=== PATIENT | male | born 1960 | race African-American/Black ===

== ENCOUNTER → 2018-06-24 | Outpatient (CLI) | payer MEDICARE, OTHER ==
--- NOTE | 2018-06-24 15:30 | RAD ---
EXAM: Nuclear gastric emptying scan. HISTORY: Pain. COMPARISON: None. TECHNIQUE: Serial static images were obtained over the stomach following oral administration of 2.0 mCi of 99m-Tc sulfur colloid. FINDINGS: The stomach empties into the small bowel without evidence of reflux in the area of the esophagus. There is 45.5% gastric emptying at 64 minutes, 86.6% gastric emptying at 127 minutes, 93.4% gastric emptying at 188 minutes, and 94.4% gastric emptying at 245 minutes. There is 54.5% retention of radiotracer within the stomach at 60 minutes. For reference purposes, a normal gastric emptying half-time is 66 +/- 22 minutes. IMPRESSION: No evidence of significant delayed gastric emptying. Electronically signed by: So Magana MD (06/24/2018 3:26 PM) [facility]
== END | disposition home or self-care (01) ==
LOC: NM 10:02
PROVIDERS: ATTEND Family Medicine
DX: R10.84 Generalized abdominal pain (principal); E11.9 Type 2 diabetes mellitus without complications
CPT/HCPCS: 78264; A9541

== ENCOUNTER → 2018-08-10 | Outpatient (CLI) | payer MEDICARE, OTHER ==
--- NOTE | 2018-08-10 11:36 | RAD ---
ABDOMEN LTD History: Right upper quadrant abdominal pain Comparison: None. Findings: Multiple sonographic images of the abdomen are submitted. Pancreas is suboptimally seen due to bowel gas, no obvious abnormality in this region. Right lobe of the liver is somewhat enlarged about 18.3 cm longitudinal. No focal hepatic lesion is demonstrated. Hepatic echotexture is within normal limits. Gallbladder is present without intraluminal abnormality, wall thickening, pericholecystic fluid. Right kidney measured 11.7 x 6.2 x 4.4 cm, no hydronephrosis. There is segmental visualization of the inferior vena cava. Common bile duct is within normal limits at 0.3 cm. Visualized abdominal aortic caliber is within normal limits. Impression: 1. There is mild hepatomegaly, no other significant abnormality demonstrated. Pancreas is not well-visualized. Electronically signed by: Christian Caraballo MD (08/10/2018 11:33 AM) [facility]
== END | disposition home or self-care (01) ==
LOC: US 08:12
PROVIDERS: ATTEND Surgery
DX: R16.0 Hepatomegaly, not elsewhere classified (principal)
CPT/HCPCS: 76705

== ENCOUNTER 2018-11-28 19:30 | Emergency (ER) | payer MEDICARE, OTHER ==
[~2018-11-28] VITALS: Ht 175.3 cm; Wt 99.8 kg
[2018-11-28] MEDS ORDERED: IV NORMAL SALINE 1,000ML 1,000 ML IV ONE (19:45)
[2018-11-28] MEDS ORDERED: ONDANSETRON PF 4 MG/2 ML VIAL. IV ONE (19:45)
[2018-11-28] MEDS ORDERED: IOHEXOL 300 MG/ML 75 ML VIAL. IV ONE (20:15)
[2018-11-28 21:02] LABS: BASO % 0 % (0-3); EOS # 0.2 x10^3/uL (0.0-0.7); EOS % 3 % (0-3); HEMATOCRIT 43.8 % (39.0-53.0); HEMOGLOBIN 14.8 g/dL (13.0-17.5); LYMPH # 0.8 x10^3/uL (1.0-4.8); LYMPH % 10 % (24-48); MEAN CORPUSCULAR HEMOGLOBIN 27 pg (25-35); MEAN CORPUSCULAR HGB CONC 34 g/dL (31-37); MEAN CORPUSCULAR VOLUME 80 fL (79-100); MONO # 0.7 x10^3/uL (0.0-1.1); MONO % 9 % (0-9); NEUT # 6.8 x10^3uL (1.8-7.7); NEUT % 79 % (31-73); PLATELET COUNT 163 x10^3/uL (140-400); RED BLOOD COUNT 5.48 x10^6/uL (4.30-5.70); RED CELL DISTRIBUTION WIDTH 13.3 % (11.5-14.5); WHITE BLOOD COUNT 8.6 x10^3/uL (4.0-11.0)
[2018-11-28 21:16] LABS: ALBUMIN 3.1 g/dL (3.4-5.0); ALBUMIN/GLOBULIN RATIO 0.8 (1.0-1.7); CALCIUM 8.7 mg/dL (8.5-10.1); CREATININE 0.9 mg/dL (0.7-1.3); GFR 104.9; POTASSIUM 3.4 mmol/L (3.5-5.1)
--- NOTE | 2018-11-28 21:24 | RAD ---
CT scan of the abdomen and pelvis with contrast 11/28/2018 CLINICAL HISTORY: History of cholecystectomy one month ago with abdominal pain, nausea, vomiting and fevers. TECHNIQUE: After the intravenous administration 75 cc of Omnipaque 300 only, contiguous, 5 mm axial sections were obtained through the abdomen and pelvis. One or more of the following individualized dose reduction techniques were utilized for this study: 1. Automated exposure control. 2. Adjustment of the mA and/or kV according to patient size. 3. Use of iterative reconstruction technique. FINDINGS: Comparison study is dated 06/17/2018. Images through the lung bases demonstrate minimal dependent subsegmental atelectasis bilaterally. Calcified right hilar lymph nodes are seen. Minimal dependent subsegmental atelectasis is seen bilaterally. A 4 mm calcified granuloma is seen involving the right lower lobe. A 4 mm nodular opacity is seen within the right upper lobe, laterally which may represent a small area of subsegmental atelectasis. The liver, spleen, pancreas, and adrenal glands are within normal limits. Low-attenuation lesions are seen involving both kidneys which likely represent cysts. These measure 5 mm to 7 mm in size. The abdominal aorta tapers normally. Surgical clips are seen within the gallbladder fossa consistent with a cholecystectomy. A drainage catheter extends from the right lateral abdomen to the mesentery within the left abdomen just to the left of midline. A small amount of free fluid is seen within the abdomen. No free air is noted. The bowel is difficult to evaluate without oral contrast material. There is no definite evidence of bowel obstruction. No abnormal fluid collection is seen to suggest evidence of an abscess. No abnormal fluid collection is seen in the region of the gallbladder fossa. Images through the pelvis demonstrate the urinary bladder distended with urine. Calcifications are seen within the pelvis consistent with phleboliths. No free fluid is seen. Minimal S-shaped curvature of the thoracolumbar spine is seen. Degenerative changes are seen involving the lower thoracic and throughout the lumbar spine and both hips. IMPRESSION: 1. Post cholecystectomy. A drain is noted in place. No abnormal fluid collection is seen in the gallbladder fossa. 2. Small amount of free fluid is seen within the abdomen. 3. No additional acute abnormality is seen. Electronically signed by: Jesus Muller MD (11/28/2018 9:21 PM) [facility]
[2018-11-28] MEDS ORDERED: MORPHINE SULFATE 4 MG/ML DISP.SYRIN. IV ONE ×2 (21:30→23:30)
[2018-11-28 22:12] VITALS: BP 116/72
--- NOTE | 2018-11-28 22:57 | ED.ADGEN ---
Past History Past Medical History: Diabetes Past Surgical History: Cholecystectomy Alcohol Use: None Drug Use: None Adult General Chief Complaint Chief Complaint ABD PAIN HPI HPI 57 old male with history of cholecystectomy status post drain placed presented to the emergency department with vomiting and the pain in the right upper quadrant stated in his pain has been getting worse for the past 48 hours Review of Systems Review of Systems Constitutional: Denies fever or chills [] Eyes: Denies change in visual acuity, redness, or eye pain [] HENT: Denies nasal congestion or sore throat [] Respiratory: Denies cough or shortness of breath [] Cardiovascular: No additional information not addressed in HPI [] GI: Denies bloody stools or diarrhea [] : Denies dysuria or hematuria [] Musculoskeletal: Denies back pain or joint pain [] Integument: Denies rash or skin lesions [] Neurologic: Denies headache, focal weakness or sensory changes [] Endocrine: Denies polyuria or polydipsia [] All other systems were reviewed and found to be within normal limits, except as documented in this note. Current Medications Current Medications Current Medications Medications (Trade) Dose Ordered Sig/Charline Start Time Stop Time Status Last Admin Dose Admin Iohexol (Omnipaque 300 Mg/ml) 75 ml 1X ONCE 11/28/18 20:15 11/28/18 20:16 DC 11/28/18 20:50 75 ML Morphine Sulfate (Morphine 4mg Syringe) 4 mg 1X ONCE 11/28/18 21:30 11/28/18 21:31 DC 11/28/18 21:37 4 MG Ondansetron HCl (Zofran) 4 mg 1X ONCE 11/28/18 19:45 11/28/18 19:56 DC 11/28/18 21:36 4 MG Sodium Chloride 1,000 ml @ 1,000 mls/hr 1X ONCE 11/28/18 19:45 11/28/18 20:44 DC 11/28/18 21:36 1,000 MLS/HR Allergies Allergies Allergies Coded Allergies Type Severity Reaction Last Updated Verified Penicillins Allergy Severe 11/28/18 Yes Physical Exam Physical Exam Constitutional: Well developed, well nourished, no acute distress, non-toxic appearance. [] HENT: Normocephalic, atraumatic, bilateral external ears normal, oropharynx moist, no oral exudates, nose normal. [] Eyes: PERRLA, EOMI, conjunctiva normal, no discharge. [] Neck: Normal range of motion, no tenderness, supple, no stridor. [] Cardiovascular:Heart rate regular rhythm, no murmur [] Lungs & Thorax: Bilateral breath sounds clear to auscultation [] Abdomen: Bowel sounds normal, soft, no tenderness, no masses, no pulsatile masses. [] Skin: Warm, dry, no erythema, no rash. [] Back: No tenderness, no CVA tenderness. [] Extremities: No tenderness, no cyanosis, no clubbing, ROM intact, no edema. [] Neurologic: Alert and oriented X 3, normal motor function, normal sensory function, no focal deficits noted. [] Psychologic: Affect normal, judgement normal, mood normal. [] Current Patient Data Vital Signs Vital Signs Date Time Temp Pulse Resp B/P (MAP) Pulse Ox O2 Delivery O2 Flow Rate FiO2 11/28/18 22:12 90 14 116/72 (87) 100 Room Air 11/28/18 19:30 98.1 Lab Results Laboratory Tests Test 11/28/18 20:40 White Blood Count 8.6 x10^3/uL (4.0-11.0) Red Blood Count 5.48 x10^6/uL (4.30-5.70) Hemoglobin 14.8 g/dL (13.0-17.5) Hematocrit 43.8 % (39.0-53.0) Mean Corpuscular Volume 80 fL (79-100) Mean Corpuscular Hemoglobin 27 pg (25-35) Mean Corpuscular Hemoglobin Concent 34 g/dL (31-37) Red Cell Distribution Width 13.3 % (11.5-14.5) Platelet Count 163 x10^3/uL (140-400) Neutrophils (%) (Auto) 79 % (31-73) H Lymphocytes (%) (Auto) 10 % (24-48) L Monocytes (%) (Auto) 9 % (0-9) Eosinophils (%) (Auto) 3 % (0-3) Basophils (%) (Auto) 0 % (0-3) Neutrophils # (Auto) 6.8 x10^3uL (1.8-7.7) Lymphocytes # (Auto) 0.8 x10^3/uL (1.0-4.8) L Monocytes # (Auto) 0.7 x10^3/uL (0.0-1.1) Eosinophils # (Auto) 0.2 x10^3/uL (0.0-0.7) Basophils # (Auto) 0.0 x10^3/uL (0.0-0.2) Sodium Level 140 mmol/L (136-145) Potassium Level 3.4 mmol/L (3.5-5.1) L Chloride Level 101 mmol/L (98-107) Carbon Dioxide Level 33 mmol/L (21-32) H Anion Gap 6 (6-14) Blood Urea Nitrogen 5 mg/dL (8-26) L Creatinine 0.9 mg/dL (0.7-1.3) Estimated GFR (Cockcroft-Gault) 104.9 BUN/Creatinine Ratio 6 (6-20) Glucose Level 121 mg/dL (70-99) H Calcium Level 8.7 mg/dL (8.5-10.1) Total Bilirubin 1.0 mg/dL (0.2-1.0) Aspartate Amino Transferase (AST) 125 U/L (15-37) H Alanine Aminotransferase (ALT) 155 U/L (16-63) H Alkaline Phosphatase 332 U/L (46-116) H Total Protein 7.0 g/dL (6.4-8.2) Albumin 3.1 g/dL (3.4-5.0) L Albumin/Globulin Ratio 0.8 (1.0-1.7) L Lipase 38 U/L (73-393) L EKG EKG [] Radiology/Procedures Radiology/Procedures [] Course & Med Decision Making Course & Med Decision Making Pertinent Labs and Imaging studies reviewed. (See chart for details) [] Final Impression Final Impression [] Problems: (1) Vomiting Qualifiers: Qualified Codes: R11.10 - Vomiting, unspecified Dragon Disclaimer Dragon Disclaimer This electronic medical record was generated, in whole or in part, using a voice recognition dictation system. GREY ENGLE MD Nov 28, 2018 22:57
--- NOTE | 2018-12-01 11:46 | EKG ---
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
== END 2018-11-29 00:18 | disposition short-term general hospital (02) ==
LOC: ER 19:35
DX: R11.11 Vomiting without nausea (principal); R10.11 Right upper quadrant pain; E11.9 Type 2 diabetes mellitus without complications; Z90.49 Acquired absence of other specified parts of digestive tract; Z88.0 Allergy status to penicillin
CPT/HCPCS: 36415; 74177; 80053; 83690; 85025; 96361; 96374; 96375; 96376; 99285; J2270; J2405; Q9967; 93005; J7030

== ENCOUNTER → 2019-10-12 | Outpatient (CLI) | payer OTHER ==
--- NOTE | 2019-10-12 15:26 | RAD ---
EXAM: Right knee, 2 views. HISTORY: Pain. COMPARISON: None. FINDINGS: 2 views of the right knee are obtained. There is no fracture, dislocation or subluxation. There is enthesopathy along the superior anterior tibial tubercle and along the patella. There is a small joint effusion. IMPRESSION: 1. No acute osseous finding. 2. Small joint effusion. Electronically signed by: So Magana MD (10/12/2019 3:23 PM) [facility]
== END | disposition home or self-care (01) ==
LOC: DXRAD 15:02
PROVIDERS: ATTEND Physician Assistant
DX: M25.461 Effusion, right knee (principal); M76.891 Other specified enthesopathies of right lower limb, excluding foot
CPT/HCPCS: 73560

== ENCOUNTER → 2020-07-26 | Outpatient (CLI) | payer OTHER ==
--- NOTE | 2020-07-26 10:31 | RAD ---
EXAM: AP and lateral views left forearm DATE: 07/26/2020 12:00 AM INDICATION: Reason: LEFT ARM PAIN / Spl. Instructions: / History: COMPARISON: No Prior FINDINGS: No evidence of acute fracture or dislocation. Wrist joint degenerative changes are seen. Left elbow joint degenerative changes are seen. Olecranon enthesopathy. No elbow joint effusion.. Atherosclerotic vascular calcifications are seen. IMPRESSION: 1. No evidence of acute fracture or dislocation. 2. Multifocal degenerative changes as above. 3. Olecranon enthesopathy. Electronically signed by: Cortez Ibrahim MD (07/26/2020 10:28 AM) [id number]
== END ==
LOC: PMG 09:52
PROVIDERS: ATTEND Physician Assistant
DX: M19.022 Primary osteoarthritis, left elbow (principal); M77.8 Other enthesopathies, not elsewhere classified; M19.032 Primary osteoarthritis, left wrist
CPT/HCPCS: 73090

== ENCOUNTER → 2020-12-03 | Outpatient (CLI) | payer OTHER ==
--- NOTE | 2020-12-04 07:41 | RAD ---
Study: XR FOOT_LEFT 3 VIEWS Indication: Shortness of breath. Toe pain. Comparison: None. Findings: No acute fracture. Alignment is maintained. No radiographic findings of osteomyelitis. Relatively mil d changes at a few locations. Nonspecific soft tissue prominence along the medial aspect of the great toe IP joint. Small adjacent erosions with erosion at the proximal phalanx exhibiting a thin sclerotic rim. Vascular calcification s. Impression: 1. No acute osseous abnormality. 2. Nonspecific mild prominence of the soft tissues medial to the great toe IP joint with small adjace nt erosions with chronic features. Gout could be considered. Correlate with patient history. Electronically signed by: LATA TRAORE MD (12/04/2020 7:38 AM) [facility]
--- NOTE | 2020-12-04 08:35 | RAD ---
XR CHEST 2V History: Shortness of breath. Comparison: 09/24/2020 Technique: PA and lateral chest radiographs. Findings: The lungs are adequately and symmetrically inflated. No airspace consolidation, pleural effusion or p neumothorax. Redemonstrated calcified hilar granulomas. The cardiac silhouette is normal in size. Nor mal pulmonary vasculature. Osseous structures and soft tissues are unremarkable. Impression: 1. No acute cardiopulmonary process. Electronically signed by: Dharmesh Phelps MD (12/04/2020 8:33 AM) [facility]
== END ==
LOC: RAD 15:44
PROVIDERS: ATTEND Family Medicine
DX: E11.621 Type 2 diabetes mellitus with foot ulcer (principal); R07.89 Other chest pain; R06.02 Shortness of breath
CPT/HCPCS: 71046; 73630

== ENCOUNTER 2021-07-20 09:42 | Emergency (ER) | payer OTHER, MEDICAID ==
[~2021-07-20] VITALS: Ht 175.3 cm; Wt 95.0 kg
[2021-07-20] MEDS ORDERED: DEXAMETHASONE SOD PHOS 10 MG/ML VIAL. IVP ONE (10:30)
[2021-07-20] MEDS ORDERED: ALBUTEROL SULFATE 2.5 MG/3 ML NEBU. NEB ONE (10:30)
--- NOTE | 2021-07-20 10:40 | EKG ---
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
--- NOTE | 2021-07-20 11:40 | RAD ---
EXAM: Chest, single view. HISTORY: Cough. COMPARISON: 12/03/2020 FINDINGS: A frontal view of the chest is obtained. There is no infiltrate, pleural effusion or pneumo thorax. The heart is normal in size. There is a small circumscribed nodule overlying the left lower t horax due to a nipple shadow. There is biapical scarring. IMPRESSION: No acute pulmonary finding. Electronically signed by: So Magana MD (07/20/2021 11:37 AM) [id number]
[2021-07-20 12:02] LABS: CALCIUM 8.6 mg/dL (8.5-10.1); CREATININE 1.1 mg/dL (0.7-1.3); GFR 82.3; POTASSIUM 3.2 mmol/L (3.5-5.1)
[2021-07-20 12:05] LABS: BASO % 0 % (0-3); EOS # 0.2 x10^3/uL (0.0-0.7); EOS % 5 % (0-3); HEMATOCRIT 39.7 % (39.0-53.0); HEMOGLOBIN 13.2 g/dL (13.0-17.5); LYMPH # 0.8 x10^3/uL (1.0-4.8); LYMPH % 26 % (24-48); MEAN CORPUSCULAR HEMOGLOBIN 28 pg (25-35); MEAN CORPUSCULAR HGB CONC 33 g/dL (31-37); MEAN CORPUSCULAR VOLUME 85 fL (79-100); MONO # 0.5 x10^3/uL (0.0-1.1); MONO % 15 % (0-9); NEUT # 1.7 x10^3uL (1.8-7.7); NEUT % 53 % (31-73); PLATELET COUNT 132 x10^3/uL (140-400); RED BLOOD COUNT 4.67 x10^6/uL (4.30-5.70); RED CELL DISTRIBUTION WIDTH 13.5 % (11.5-14.5); WHITE BLOOD COUNT 3.1 x10^3/uL (4.0-11.0)
[2021-07-20 12:07] LABS: ALBUMIN 3.2 g/dL (3.4-5.0); ALBUMIN/GLOBULIN RATIO 0.9 (1.0-1.7); MAGNESIUM 1.8 mg/dL (1.8-2.4); TOTAL BILIRUBIN 0.2 mg/dL (0.2-1.0); TOTAL PROTEIN 6.8 g/dL (6.4-8.2)
--- NOTE | 2021-07-20 12:07 | PHYS DOC ---
Past History Past Medical History: Diabetes (PHILIP WILLIAM APRN) Past Surgical History: Cholecystectomy Additional Past Surgical Histo: Brain surgery/cyst (PHILIP WILLIAM APRN) Alcohol Use: None Drug Use: None (PHILIP WILLIAM APRN) General Adult EDM: Chief Complaint: SHORTNESS OF BREATH HPI: HPI: Patient is a 60-year-old male who presents with COPD exacerbation. Patient reports for the last few days he has had a productive cough and shortness of breath. Patient states "I have pain when I cough and feel achy all over". Denies chest pain. (PHILIP WILLIAM APRN) Review of Systems: Review of Systems: ROS At least 10 ROS systems have been reviewed and are negative except as documented in the HPI. General: Negative except as outlined in HPI above. Skin: Negative except as outlined in HPI above. HEENT: Negative except as outlined in HPI above. Neck: Negative except as outlined in HPI above. Respiratory: Negative except as outlined in HPI above.. Cardiovascular: Negative except as outlined in HPI above. Abdomen: Negative except as outlined in HPI above. : Negative except as outlined in HPI above. Back/MSK: Negative except as outlined in HPI above. Neuro: Negative except as outlined in HPI above. Psych: Negative except as outlined in HPI above. (PHILIP WILLIAM APRN) Current Medications: Current Meds: Current Medications Medications (Trade) Dose Ordered Sig/Charline Start Time Stop Time Status Last Admin Dose Admin Albuterol Sulfate (Ventolin) 2.5 mg 1X ONCE 07/20/21 10:30 07/20/21 10:31 DC 07/20/21 10:31 2.5 MG Dexamethasone Sodium Phosphate (Decadron) 10 mg 1X ONCE 07/20/21 10:30 07/20/21 10:31 DC (PHILIP WILLIAM APRN) Allergies: Allergies: Allergies Coded Allergies Type Severity Reaction Last Updated Verified Penicillins Allergy Severe 11/28/18 Yes (PHILIP WILLIAM APRN) Physical Exam: PE: Constitutional: Well developed, well nourished, no acute distress, non-toxic appearance. [] HENT: Normocephalic, atraumatic, bilateral external ears normal, oropharynx moist, no oral exudates, nose normal. [] Eyes: PERRLA, EOMI, conjunctiva normal, no discharge. [] Neck: Normal range of motion, no tenderness, supple, no stridor. [] Cardiovascular:Heart rate regular rhythm, no murmur [] Lungs & Thorax: Coarse breath sounds, right lower lobe. Abdomen: Bowel sounds normal, soft, no tenderness, no masses, no pulsatile masses. [] Skin: Warm, dry, no erythema, no rash. [] Back: No tenderness, no CVA tenderness. [] Extremities: No tenderness, no cyanosis, no clubbing, ROM intact, no edema. [] Neurologic: Alert and oriented X 3, normal motor function, normal sensory function, no focal deficits noted. [] Psychologic: Affect normal, judgement normal, mood normal. [] (PHILIP WILLIAM APRN) Current Patient Data: Vital Signs: Vital Signs Date Time Temp Pulse Resp B/P (MAP) Pulse Ox O2 Delivery O2 Flow Rate FiO2 07/20/21 10:31 98 Room Air 07/20/21 10:00 99.3 97 23 128/78 (95) (PHILIP WILLIAM APRN) EKG: EKG: Sinus rhythm, heart rate 98 bpm. No STEMI. Read by Dr. Stevenson at 1013. [] Rhythm. Heart rate 97 bpm. No STEMI. Read by Dr. Stevenson at 1548. (PHILIP WILLIAM APRN) Radiology/Procedures: Radiology/Procedures: [] EXAM: Chest, single view. HISTORY: Cough. COMPARISON: 12/03/2020 FINDINGS: A frontal view of the chest is obtained. There is no infiltrate, pleural effusion or pneumothorax. The heart is normal in size. There is a small circumscribed nodule overlying the left lower thorax due to a nipple shadow. There is biapical scarring. IMPRESSION: No acute pulmonary finding. Electronically signed by: So Magana MD (07/20/2021 11:37 AM) [id number] (PHILIP WILLIAM APRN) Heart Score: C/O Chest Pain: No Risk Factors: Risk Factors: DM, Current or recent (<one month) smoker, HTN, HLP, family history of CAD, obesity. Risk Scores: Score 0 - 3: 2.5% MACE over next 6 weeks - Discharge Home Score 4 - 6: 20.3% MACE over next 6 weeks - Admit for Clinical Observation Score 7 - 10: 72.7% MACE over next 6 weeks - Early Invasive Strategies (PHILIP WILLIAM APRN) Course & Med Decision Making: Course & Med Decision Making Pertinent Labs and Imaging studies reviewed. (See chart for details) [] 60-year-old male presents with COPD exacerbation. Patient given dexamethasone, albuterol treatment. Potassium is 3.2. Patient given 40 mEq of potassium. Lactic of 4.2. Glucose was 338. Patient states he has been having issues with controlling blood sugar the last couple of days. Patient has not taken his insulin today. Patient given 10 units. Normal saline bolus ordered. Chest x-ray is unremarkable. While discussing results with patient, who reported right-sided chest pain. Repeat EKG performed which shows normal sinus rhythm. Patient is also requesting something for his cough. Patient given Phenergan with codeine. Patient given second liter of NS. Patient reports that chest pain has subsided and his cough has improved. Second troponin and lactic ordered. Blood sugar improved after insulin and fluids. Second lactic was 4.0. Patient had only received 1200 mils of fluids. Third bag of NS ordered, and lactic will be reordered. Patient is requesting a dinner tray. Blood sugar is 367. Patient given 10 units of insulin. Third lactate was 2.8. Urine was negative for ketones or infection. Patient was most likely dehydrated. Patient discharged home with COPD exacerbation. Advised patient to continue using breathing treatments and inhalers as directed. Patient should follow-up with PCP in the next 2 to 3 days for further management. Patient is he modynamically stable. (PHILIP WILLIAM APRN) Course & Med Decision Making Did not see or evaluate patient. Did not discuss patient with [employer]. Agree with [employer]'s work-up and disposition per note. (HANANE HANEY MD) Hollis Disclaimer: Hollis Disclaimer: This electronic medical record was generated, in whole or in part, using a voice recognition dictation system. (PHILIP WILLIAM APRN) Departure Departure: Impression: Primary Impression: COPD exacerbation Disposition: HOME / SELF CARE / HOMELESS Condition: STABLE Referrals: FERNANDO VALDEZ (PCP) Patient Instructions: Cough, Adult, [id number] Additional Instructions: You were seen in the emergency room for cough, chest tightness. Your chest x- ray was negative for pneumonia. Make sure that you are taking your insulin as directed, drinking plenty of fluids. Make sure you are using your breathing treatments along with your inhalers as directed. You can also take [id number] Mucinex to help with congestion. Please follow-up with your PCP in the next 2 to 3 days for further management. Return to the emergency room if you have worsening symptoms or concerns. EMERGENCY DEPARTMENT GENERAL DISCHARGE INSTRUCTIONS Thank you for coming to [facility] (ED) today and trusting us with you care. We trust that you had a positivie experience in our Emergency Department. If you wish to speak to the department management, you may call the director at [phone]. YOUR FOLLOW UP INSTRUCTIONS ARE FOLLOWS: 1. Do you have a private Doctor? If you do not have a private doctor, please ask for a resource list of physicians or clinics that may be able to assist you with follow up care. 2. The Emergency Physician has interpreted your x-rays. The X-Ray specialist will also review them. If there is a change in the findings, you will be notified in 48 hours when at all possible. 3. A lab test or culture has been done, your results will be reviewed and you will be notified if you need a change in treatment. ADDITIONAL INSTRUCTIONS AND INFORMATION: 1. Your care today has been supervised by a physician who is specially trained in emergency care. Many problems require more than one evaluation for a complete diagnosis and treatment. We recommend that you schedule your follow up appointment as recommended to ensure complete treatment of you illness or injury. If you are unable to obtain follow up care and continue to have a problem, or if your condition worsens, we recommend that you return to the ED. 2. We are not able to safely determine your condition over the phone nor are we able to give sound medical advice over the phone. For these safety reasons, if you call for medical advice we will ask you to come to the ED for further evaluation. 3. If you have any questions regarding these discharge instructions please call the ED at [phone]. SAFETY INFORMATION: In the interest of safety, wellness, and injury prevention; we encourage you to wear your sealbelt, if you smoke; quite smoking, and we encourage family to use a protective helmet for bicycling and other sporting events that present an increased risk for head injury. IF YOUR SYMPTOMS WORSEN OR NEW SYMPTOMS DEVELOP, OR YOU HAVE CONCERNS ABOUT YOUR CONDITION; OR IF YOUR CONDITION WORSENS WHILE YOU ARE WAITING FOR YOUR FOLLOW UP APPOINTMENT; EITHER CONTACT YOUR PRIMARY CARE DOCTOR, THE PHYSICIAN WHOSE NAME AND NUMBER YOU WERE GIVEN, OR RETURN TO THE ED IMMEDIATELY. PHILIP WILLIAM APRN Jul 20, 2021 12:07 HANANE HANEY MD Jul 20, 2021 23:15
[2021-07-20] MEDS ORDERED: IV NORMAL SALINE 1,000ML 1,000 ML IV ONE ×3 (12:30→17:15)
[2021-07-20] MEDS ORDERED: POTASSIUM CHLORIDE 20 MEQ TABLET.ER. PO ONE (12:30)
[2021-07-20] MEDS ORDERED: INSULIN REGULAR 100 UNIT/ML 3ML VIAL. IV ONE ×2 (14:00→19:00)
[2021-07-20] MEDS ORDERED: PROMETH/CODEINE 6.25/10MG 5 ML SYRUP. PO PRN (14:15)
[2021-07-20] MEDS ORDERED: PROMETH/CODEINE 6.25/10MG 5 ML SYRUP. PEG PRN (14:15)
--- NOTE | 2021-07-20 16:08 | EKG ---
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
[2021-07-20 18:30] VITALS: BP 147/90
[2021-07-20 19:42] LABS: BILIRUBIN,URINE NEG (NEG); CLARITY,URINE CLEAR; COLOR,URINE YELLOW; GLUCOSE,URINE >=1000 mg/dL (NEG); UROBILINOGEN,URINE 0.2 mg/dL (0.2 mg/dL)
[2021-07-20 19:43] LABS: BACTERIA,URINE 0 /HPF (0-FEW); NITRITE,URINE NEG (NEG); RBC,URINE 0 /HPF (0-2); WBC,URINE 0 /HPF (0-4)
--- NOTE | 2021-07-20 22:21 | RAD ---
EXAM: CHEST ONE VIEW. HISTORY: Cough. COMPARISON: 07/20/2021. FINDINGS: A frontal view of the chest is obtained. There are no confluent infiltrates. There is no pneumothorax or pleural effusion. The heart is not en larged. There are chronic left rib fractures. Calcified lymph nodes likely reflect old granulomatous disease. IMPRESSION: 1. No confluent infiltrates. Electronically signed by: Melisa Garcia MD (07/20/2021 10:19 PM) [facility]
== END 2021-07-20 20:53 | disposition home or self-care (01) ==
LOC: ER 09:42
DX: J44.1 Chronic obstructive pulmonary disease with (acute) exacerbation (principal); E11.9 Type 2 diabetes mellitus without complications; Z88.0 Allergy status to penicillin
CPT/HCPCS: 36415; 71045; 80053; 81001; 83605; 83735; 83880; 84484; 85025; 87040; 87077; 87205; 93005; 94640; 96361; 96374; 96375; 96376; 99285; J1100; J1815; J7030; J7613